=== PATIENT | male | born 1970 | race Hispanic/Latino ===

== ENCOUNTER → 2021-10-22 | Outpatient (CLI) | payer OTHER | LOC: RAD 13:15 | PROVIDERS: ATTEND Internal Medicine | DX: M47.814 Spondylosis without myelopathy or radiculopathy, thoracic region (principal) | CPT/HCPCS: 71046; 72070; 72110 ==

== ENCOUNTER → 2021-11-04 | Outpatient (CLI) | payer OTHER | LOC: DX 14:48 | PROVIDERS: ATTEND Internal Medicine | DX: M81.8 Other osteoporosis without current pathological fracture (principal); M85.80 Other specified disorders of bone density and structure, unspecified site | CPT/HCPCS: 77080 ==